=== PATIENT | female | born 1935 | race Caucasian/White ===

== ENCOUNTER 2016-09-30 12:27 | Observation (INO) | payer MEDICARE ==
[~2016-09-30] VITALS: Ht 157.5 cm; Wt 54.5 kg
[2016-09-30] MEDS ORDERED: LEXA1TAB PO (12:56)
[2016-09-30] MEDS ORDERED: LORA1TAB12 PO (12:56)
[2016-09-30] MEDS ORDERED: METO1TAB7 PO (12:56)
[2016-09-30] MEDS ORDERED: CRES10TA32 PO (12:56)
[2016-09-30] MEDS ORDERED: ASPI81TA85 PO (12:56)
--- NOTE | 2016-09-30 14:15 | REP ---
PELVIS AND LEFT HIP: AP view of the pelvis and two additional views of the left hip are performed. There is cortical irregularity of the superior margin of the left pubis, which could possibly represent a subtle nondisplaced fracture. I see no other evidence of acute fracture or dislocation of the visualized osseous structures. There are mild degenerative change at the hip joints bilaterally. There are degenerative changes of the lower lumbar spine. IMPRESSION: Possible subtle nondisplaced fracture, left pubis. Signed by William Newsome MD 10/01/2016 05:02 P
[2016-09-30] MEDS ORDERED: oxyCODONE 5MG TAB PO PRN (14:45)
[2016-09-30] MEDS ORDERED: ACETAMINOPHEN 500 MG TAB PO PRN (14:45)
[2016-09-30] MEDS ORDERED: BISACODYL 10 MG SUPP PR PRN (14:45)
[2016-09-30] MEDS ORDERED: ONDANSETRON 4MG/2ML VIAL (J2405) IV PRN (14:45)
[2016-09-30] MEDS ORDERED: MORPHINE 2 MG/ML 1ML SYRINGE IV PRN (14:45)
[2016-09-30] MEDS ORDERED: LEXA1TAB2 PO (15:19)
[2016-09-30] MEDS ORDERED: VITA100066 PO (15:19)
[2016-09-30] MEDS ORDERED: VITMTA PO (15:19)
[2016-09-30] MEDS ORDERED: VITAMIN K PO (15:19)
[2016-09-30] MEDS ORDERED: VITA400C7 PO (15:19)
[2016-09-30] MEDS ORDERED: CO Q100C10 PO (15:19)
[2016-09-30] MEDS ORDERED: CALC1TAB40 PO (15:19)
[2016-09-30] MEDS ORDERED: GLUC1CAP10 PO (15:19)
[2016-09-30 18:10] LABS: BASO % 0.5 % (0.0-1.0); EOS # 0.1 K/mm3 (0.0-0.50); LARGE UNSTAINED CELL # 0.2 K/mm3 (0.0-0.4); LARGE UNSTAINED CELL % 3.1 % (0.0-4.0); LYMPH # 2.2 K/mm3 (1.5-4.5); LYMPH % 33.4 % (24.0-44.0); MEAN CORPUSCULAR HEMOGLOBIN 35.1 pg (27.0-33.0); MEAN CORPUSCULAR HGB CONC 34.3 g/dl (32.0-36.5); MEAN CORPUSCULAR VOLUME 102.5 fl (80.0-96.0); MONO # 0.4 K/mm3 (0.0-0.8); MONO % 6.6 % (0.0-5.0); NEUTROPHILS # 3.3 K/mm3 (1.8-7.7); NEUTROPHILS % 54.3 % (36.0-66.0); PLATELET COUNT, AUTOMATED 160 k/mm3 (150-450); RED CELL DISTRIBUTION WIDTH 12.5 % (11.5-14.5); WHITE BLOOD COUNT 6.1 K/mm3 (4.0-10.0)
[2016-09-30 18:29] LABS: ANION GAP 9 MEQ/L (8-16); BLOOD UREA NITROGEN 12 MG/DL (7-18); CALCIUM LEVEL 9.5 MG/DL (8.8-10.2); CARBON DIOXIDE LEVEL 25 MEQ/L (21-32); CHLORIDE LEVEL 106 MEQ/L (98-107); CREATININE FOR GFR 0.83 MG/DL (0.55-1.02); GLOMERULAR FILTRATION RATE > 60.0 (>39); GLUCOSE, FASTING 93 MG/DL (83-110); POTASSIUM SERUM 4.1 MEQ/L (3.5-5.1); SODIUM LEVEL 140 MEQ/L (136-145)
--- NOTE | 2016-09-30 20:28 | HPE ---
DATE OF ADMISSION: 09/30/2016 PRIMARY CARE PROVIDER: in [place] CHIEF COMPLAINT: Loss of balance and fall with injury to the left side of the hip on 09/28/2016. PAST MEDICAL HISTORY: 1. Hypertension. 2. Hyperlipidemia. 3. Possible history of coronary artery disease. 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 She felt pain in the left hip and going towards the groin. She was helped up by her to the bed. She remained at home the next day in bed and she was having lots of difficulty getting out of bed and weightbearing on the left side, so she has been lying in bed. However, today she is still unable to get out and walk, so she was brought to the hospital. In the emergency department (ED), the patient was evaluated and had an x-ray of the hip and pelvis done which showed possible nondisplaced fracture of left pubis. However, the patient and her are elderly and she was in a lot of pain and unable to bear weight and ambulate so she was admitted to the hospitalist service for pain control and physical therapy. Dr. Crespo was consulted from the emergency room and he has kindly agreed to see the patient. HOME MEDICATIONS: - aspirin 81 mg daily - calcium, magnesium, zinc one tablet daily - cholecalciferol 1000 units daily - coenzyme Q10 100 mg daily - Lexapro 10 mg daily - glucosamine one capsule by mouth daily - lorazepam 1 mg at bedtime - metoprolol succinate 50 mg at bedtime - multivitamins one tablet by mouth daily - Crestor 10 mg at bedtime - vitamin E 4000 units by mouth daily - vitamin K2-7 one tablet by mouth daily ALLERGIES: No known allergies. SOCIAL HISTORY: Patient does not smoke, does not abuse alcohol or recreational drugs. FAMILY HISTORY: Nothing significant. REVIEW OF SYSTEMS: Patient denies any fever or chills, denies any chest pain or shortness of breath, denies any abdominal pain, nausea, vomiting, or diarrhea. Just complains of left hip pain and left groin pain when she moves or bears weight on the left. PHYSICAL EXAMINATION: VITAL SIGNS: Temperature 98.1, pulse 68, respiratory rate 18, blood pressure 134/70, pulse oximetry 97% in room air. GENERAL: Patient awake, alert, oriented times three, lying down in bed, in no acute distress. HEENT: Normocephalic, atraumatic. Moist mucous membranes. Anicteric eyes. CHEST: Clear to auscultation. CARDIOVASCULAR: S1, S2, regular. No rub, murmur, or gallop. ABDOMEN: Soft, nontender. Bowel sounds present. EXTREMITIES: No edema. LABORATORY DATA: Will order. None available at this point. ASSESSMENT: This is a 81-year-old female admitted for symphysis pubis fracture for pain control and physical therapy. PLAN: 1. For symphysis pubis fracture, will give Tylenol and oxycodone as required for pain control. Physical therapy. Dr. Crespo to see from orthopedics. CT of the hip and pelvis to clarify the fracture more clearly. 2. Hypertension. Will continue with metoprolol. 3. Hyperlipidemia. Will continue with Crestor. 4. Possible history of coronary artery disease. Will continue with aspirin, beta callie, and statin. 5. Deep venous thrombosis (DVT) prophylaxis. Will order.
--- NOTE | 2016-09-30 20:42 | REP ---
CT PELVIS WITHOUT CONTRAST: 09/30/2016. Clinical history: Contour irregularity on radiographs of the left symphysis pubis superiorly, evaluate for nondisplaced fracture. Comparison: Pelvis and bilateral hips today. Findings: Noncontrast images with coronal and sagittal reconstructions provided through the pelvis. There is omental fat in an umbilical hernia not distending the omentum at about 15 mm diameter. The distal left colon, sigmoid and rectum were unremarkable. Right colon is intact. An apparent normal appendix is seen. Small bowel loops in the lower abdomen and pelvis were grossly intact. Uterus is anteverted, not enlarged. Bladder is adequately filled. No stone, mass or wall thickening. There are vascular calcifications from the aorta through the iliac vessels to the femoral triad in the groin. There is no free air within the pelvis on lung window review. There is no ventral or inguinal hernia visible on this study. Intrinsic and extrinsic hip and pelvic muscles as well as the buttocks symmetric and grossly normal. The bone windows show a nondisplaced fracture of the superior pubic ramus at the symphysis pubis. There is a cortical defect anteriorly on axial images. Contour defect also seen on the coronal reconstructions. There is a sclerotic focus in the right symphysis pubis at the articular margin. I do not see other fractures of the pubic rami, however, there is a nondisplaced fracture of anterior column of the acetabulum on that left side and it is seen on coronal image 35 and axial image 53 through 56. Posterior column intact. I do not see a definite fracture of either hip, the right acetabulum or pubic rami and the iliac bones. Sacral ala and foramina intact. Facet arthropathy, degenerative disc change lower lumbar spine. Impression: 1. Nondisplaced fracture of the left anterior wall of the medial aspect superior pubic ramus at the symphysis pubis and another nondisplaced fracture anterior column of the left acetabulum at the junction with the superior pubic ramus. There are no other fractures. Signed by Titi Martinez MD 10/01/2016 11:15 A
[2016-09-30] MEDS: SENOKOT S TAB PO SCH (20:55)
[2016-09-30] MEDS: MULTIVITAMINS/MINERALS THERAP 1 TAB PO SCH (20:55)
[2016-09-30 20:56] VITALS: BP 133/62
[2016-09-30] MEDS ORDERED: ROSUVASTATIN 10 MG TAB (CRESTOR) PO SCH (21:00)
[2016-09-30] MEDS ORDERED: LORazepam 1 MG TAB PO SCH (21:00)
[2016-09-30] MEDS ORDERED: METOPROLOL SUCC (TopROL XL) 50MG **XL** TAB PO SCH (21:00)
[2016-09-30] MEDS ORDERED: ENOXAPARIN 30 MG/0.3 ML SYR (J1650) SC SCH (21:00)
[2016-09-30 22:00] VITALS: BP 131/66
[2016-10-01 06:00] VITALS: BP 122/67
[2016-10-01 07:12] LABS: BASO % 0.6 % (0.0-1.0); EOS # 0.2 K/mm3 (0.0-0.50); EOS % 4.8 % (0.0-3.0); LARGE UNSTAINED CELL # 0.3 K/mm3 (0.0-0.4); LARGE UNSTAINED CELL % 4.8 % (0.0-4.0); LYMPH # 2.4 K/mm3 (1.5-4.5); LYMPH % 41.1 % (24.0-44.0); MEAN CORPUSCULAR HEMOGLOBIN 34.6 pg (27.0-33.0); MEAN CORPUSCULAR HGB CONC 33.9 g/dl (32.0-36.5); MONO # 0.4 K/mm3 (0.0-0.8); MONO % 8.3 % (0.0-5.0); NEUTROPHILS # 2.1 K/mm3 (1.8-7.7); NEUTROPHILS % 40.5 % (36.0-66.0); PLATELET COUNT, AUTOMATED 167 k/mm3 (150-450); RED CELL DISTRIBUTION WIDTH 12.5 % (11.5-14.5); WHITE BLOOD COUNT 5.2 K/mm3 (4.0-10.0)
[2016-10-01 07:16] LABS: ANION GAP 10 MEQ/L (8-16); BLOOD UREA NITROGEN 13 MG/DL (7-18); CALCIUM LEVEL 9.3 MG/DL (8.8-10.2); CARBON DIOXIDE LEVEL 24 MEQ/L (21-32); CHLORIDE LEVEL 108 MEQ/L (98-107); CREATININE FOR GFR 0.74 MG/DL (0.55-1.02); GLOMERULAR FILTRATION RATE > 60.0 (>39); GLUCOSE, FASTING 88 MG/DL (83-110); SODIUM LEVEL 142 MEQ/L (136-145)
[2016-10-01] MEDS ORDERED: ESCITALOPRAM OXALATE 10 MG TAB (LEXAPRO) PO SCH (09:00)
[2016-10-01] MEDS ORDERED: ASPIRIN 81 MG ENTERIC TAB PO SCH (09:00)
[2016-10-01] MEDS: SENOKOT S TAB PO SCH ×2 (09:00→09:20)
[2016-10-01] MEDS: MULTIVITAMINS/MINERALS THERAP 1 TAB PO SCH (09:20)
--- NOTE | 2016-10-01 18:38 | DS.PDOC ---
Discharge Summary General Date of Admission Sep 30, 2016 at 14:36 Date of Discharge 10/01/16 Specialist/Consultants Involve: Gamal Crespo MD Discharge Summary PROCEDURES PERFORMED DURING STAY: None. ADMITTING DIAGNOSES: 1. .nondisplaced fracture of the left anterior wall of the medial aspect superior pubic ramus at the symphysis pubis 2. .nondisplaced fracture of the left anterior wall of the medial aspect superior pubic ramus at the symphysis pubis DISCHARGE DIAGNOSES: 1. .nondisplaced fracture of the left anterior wall of the medial aspect superior pubic ramus at the symphysis pubis 2. .nondisplaced fracture of the left anterior wall of the medial aspect superior pubic ramus at the symphysis pubis COMPLICATIONS/CHIEF COMPLAINT: Fall,Fx Pubis. HISTORY OF PRESENT ILLNESS: . 81-year-old female who is a resident of [place] with a past medical history significant for hypertension, dyslipidemia, and CAD presents to the ER after she fell on her left side with trauma to her left hip area. The patient barely stated that she was chasing a spider in her [facility] home when she lost her balance and tripped, landing on her left side. She reports that this happened 3 days ago. So is currently the patient states that she was having difficulty getting out of bed and weightbearing on the left side. She denied any prodromal symptoms such as lightheadedness, dizziness, chest pain, shortness of breath, abdominal pain, or any nausea/chronic/diarrhea prior to her fall or thereafter. In the ER an x-ray of the hip and pelvis revealed possible nondisplaced fracture of the left pubis. A follow-up CT scan revealed nondisplaced fracture of the left anterior wall of the medial aspect superior pubic ramus at the symphysis pubis and another nondisplaced fracture anterior column of the left cerebellum at the junction with the superior pubic ramus. The patient was subsequently admitted to the hospitalist service for further evaluation and management. During her hospitalization, an orthopedic consult was placed. The patient was also managed with pain control. The patient was seen by physical therapy and cleared to be discharged home. In addition, the patient was seen by orthopedic surgery who recommended no surgical intervention at this time, and to progress with weight bearing activity as tolerated. At this time, the patient is eager to return home and reports no acute complaints of pain. I've advised the patient to follow-up with her primary care physician within 2-4 weeks. She has also been advised to return to the ER if she was expressing any other acute emergencies. DISCHARGE MEDICATIONS: Please see below. ALLERGIES: Please see below. PHYSICAL EXAMINATION ON DISCHARGE: VITAL SIGNS: Please see below. GENERAL: Awake, alert, oriented HEENT: Normocephalic, atraumatic NECK: No JVD CARDIOVASCULAR EXAMINATION: Normal rate, normal S1, S2 RESPIRATORY EXAMINATION: Clear to auscultation bilaterally ABDOMINAL EXAMINATION: Soft, nontender, nondistended EXTREMITIES: 5 out of 5 strength on hip flexion/extension and knee flexion/ extension. Able to ambulate without assistance device at the bedside. LABORATORY DATA: Please see below. IMAGING: PELVIS AND LEFT HIP: AP view of the pelvis and two additional views of the left hip are performed. There is cortical irregularity of the superior margin of the left pubis, which could possibly represent a subtle nondisplaced fracture. I see no other evidence of acute fracture or dislocation of the visualized osseous structures. There are mild degenerative change at the hip joints bilaterally. There are degenerative changes of the lower lumbar spine. IMPRESSION: Possible subtle nondisplaced fracture, left pubis. CT PELVIS WITHOUT CONTRAST: 09/30/2016. Clinical history: Contour irregularity on radiographs of the left symphysis pubis superiorly, evaluate for nondisplaced fracture. Comparison: Pelvis and bilateral hips today. Findings: Noncontrast images with coronal and sagittal reconstructions provided through the pelvis. There is omental fat in an umbilical hernia not distending the omentum at about 15 mm diameter. The distal left colon, sigmoid and rectum were unremarkable. Right colon is intact. An apparent normal appendix is seen. Small bowel loops in the lower abdomen and pelvis were grossly intact. Uterus is anteverted, not enlarged. Bladder is adequately filled. No stone, mass or wall thickening. There are vascular calcifications from the aorta through the iliac vessels to the femoral triad in the groin. There is no free air within the pelvis on lung window review. There is no ventral or inguinal hernia visible on this study. Intrinsic and extrinsic hip and pelvic muscles as well as the buttocks symmetric and grossly normal. The bone windows show a nondisplaced fracture of the superior pubic ramus at the symphysis pubis. There is a cortical defect anteriorly on axial images. Contour defect also seen on the coronal reconstructions. There is a sclerotic focus in the right symphysis pubis at the articular margin. I do not see other fractures of the pubic rami, however, there is a nondisplaced fracture of anterior column of the acetabulum on that left side and it is seen on coronal image 35 and axial image 53 through 56. Posterior column intact. I do not see a definite fracture of either hip, the right acetabulum or pubic rami and the iliac bones. Sacral ala and foramina intact. Facet arthropathy, degenerative disc change lower lumbar spine. Impression: 1. Nondisplaced fracture of the left anterior wall of the medial aspect superior pubic ramus at the symphysis pubis and another nondisplaced fracture anterior column of the left acetabulum at the junction with the superior pubic ramus. There are no other fractures. PROGNOSIS: Medically stable ACTIVITY: As tolerated. DIET: . 2 g low sodium diet DISCHARGE PLAN: DISPOSITION: Home, Self-Care. DISCHARGE INSTRUCTIONS: 1. . Follow-up with primary care physician within 2-4 weeks 2. . Return to the ER for any acute emergencies DISCHARGE CONDITION: Stable. TIME SPENT ON DISCHARGE: Greater than 30 minutes. Vital Signs/I&Os Vital Signs Date Time Temp Pulse Resp B/P (MAP) Pulse Ox O2 Delivery O2 Flow Rate FiO2 10/01/16 06:00 97.7 75 20 122/67 (85) 94 Room Air I&O- Last 24 Hours up to 6 AM 10/01/16 06:00 Intake Total 480 ml Balance 480 ml Laboratory Data Labs 24H Laboratory Tests 2 10/01/16 06:34: White Blood Count 5.2, Red Blood Count 3.82L, Hemoglobin 13.2, Hematocrit 39.0, Mean Corpuscular Volume 102.0H, Mean Corpuscular Hemoglobin 34.6H, Mean Corpuscular Hemoglobin Concent 33.9, Red Cell Distribution Width 12.5, Platelet Count 167, Neutrophils (%) (Auto) 40.5, Lymphocytes (%) (Auto) 41.1, Monocytes ( %) (Auto) 8.3H, Eosinophils (%) (Auto) 4.8H, Basophils (%) (Auto) 0.6, Neutrophils # (Auto) 2.1, Lymphocytes # (Auto) 2.4, Monocytes # (Auto) 0.4, Eosinophils # (Auto) 0.2, Basophils # (Auto) 0.0, Large Unclassified Cells % 4.8H, Large Unclassified Cells # 0.3, Anion Gap 10, Glomerular Filtration Rate > 60.0, Blood Urea Nitrogen 13, Creatinine 0.74, Sodium Level 142, Potassium Level 4.0, Chloride Level 108H, Carbon Dioxide Level 24, Calcium Level 9.3 CBC/BMP Laboratory Tests 10/01/16 06:34 Red Blood Count 3.82 L, Mean Corpuscular Volume 102.0 H, Mean Corpuscular Hemoglobin 34.6 H, Mean Corpuscular Hemoglobin Concent 33.9, Red Cell Distribution Width 12.5, Neutrophils (%) (Auto) 40.5, Lymphocytes (%) (Auto) 41.1, Monocytes (%) (Auto) 8.3 H, Eosinophils (%) (Auto) 4.8 H, Basophils (%) ( Auto) 0.6, Neutrophils # (Auto) 2.1, Lymphocytes # (Auto) 2.4, Monocytes # (Auto ) 0.4, Eosinophils # (Auto) 0.2, Basophils # (Auto) 0.0, Calcium Level 9.3 Discharge Medications Scheduled (Co Q 10) 100 Mg Cap, 100 MG PO DAILY, (Reported) (Calcium & Magnesium + Zin 334-134-5 mg) 1 Tab Tab, 1 TAB PO DAILY, (Reported) Aspirin (Aspir-81) 81 Mg Tab, 81 MG PO DAILY, (Reported) Cholecalciferol (Vitamin D) 1,000 Unit Tab, 1,000 UNIT PO DAILY, (Reported) Escitalopram Oxalate (Lexapro) 20 Mg Tab, 10 MG PO DAILY, (Reported) Glucosamine Chondroitin (Glucosamine Chondroitin) 1 Cap Cap, 1 CAP PO DAILY, ( Reported) Lorazepam (Lorazepam) 1 Mg Tab, 1 MG PO QHS, (Reported) Metoprolol Succinate (Metoprolol Succinate ER) 50 Mg Tab, 50 MG PO QHS, ( Reported) Multivitamins *[facility] STOCKED* (Thera M Plus *[facility] STOCK[facility]*) 1 Tab Tab, 1 TAB PO DAILY, (Reported) Rosuvastatin (Crestor) 10 Mg Tab, 10 MG PO QHS, (Reported) Vitamin E (Vitamin E) 400 Unit Cap, 400 UNIT PO DAILY, (Reported) [Vitamin K2-7] , 1 TAB PO DAILY, (Reported) Allergies Coded Allergies: No Known Allergies (Unverified , 09/30/16) DONNA BATISTA MD Oct 01, 2016 18:38
--- NOTE | 2016-10-01 21:44 | CR ---
DATE OF CONSULTATION: 10/01/2016 CHIEF COMPLAINT: Pain to the left side of the hip. HISTORY OF PRESENT ILLNESS: This is a pleasant 81-year-old female who fell while at home, had significant pain and trouble weightbearing and was admitted for pain management and mobilization through the emergency room (ER) to the hospitalist service. The patient localized pain towards the left hip pelvic region. She had a plain film which reflected a nondisplaced fracture involving the left pubis extending toward the ramus. She also had a CT scan which reflected nondisplaced fracture left anterior wall medial aspect superior pubic ramus and a nondisplaced fracture anterior column left acetabulum at the junction of the superior ramus. [facility] and hospitalist reports are reviewed. CLINICAL EXAMINATION: She is alert, oriented, cooperative. Mood and affect appropriate. She is quite charming. She is not in distress. She voiced decreased pain and increased ability to move. She is eager to leave the hospital. There did not seem to be pain with rotation of the hips. There was no peripheral edema. The extremities warm and well-perfused. Healthy skin face, upper and lower extremities, a cold well-healed wound from when she was a child on the medial thigh attributed to shrapnel from World War II. IMPRESSION: Nondisplaced fracture of the pubic ramus and nondisplaced fracture of the ramus extending towards the anterior column of the acetabulum. RECOMMENDATIONS: Include progressive mobilization, protected weightbearing using a walker. DISCHARGE PLANNING: Followup in the office 1-2 weeks. The patient was comfortable with that plan.
== END 2016-10-01 13:15 | disposition home or self-care (01) ==
LOC: M ED 12:27 → M ED INP 14:36 → M MS5PR 15:40
PROVIDERS: ADMIT Internal Medicine Nephrology; ATTEND Internal Medicine
DX: S32.512A Fracture of superior rim of left pubis, initial encounter for closed fracture (principal); S32.435A Nondisplaced fracture of anterior column [iliopubic] of left acetabulum, initial encounter for closed fracture; W01.0XXA Fall on same level from slipping, tripping and stumbling without subsequent striking against object, initial encounter; Y92.009 Unspecified place in unspecified non-institutional (private) residence as the place of occurrence of the external cause; Y93.89 Activity, other specified; Y99.8 Other external cause status; I10 Essential (primary) hypertension; E78.5 Hyperlipidemia, unspecified; I25.10 Atherosclerotic heart disease of native coronary artery without angina pectoris; Z79.899 Other long term (current) drug therapy; Z79.82 Long term (current) use of aspirin
CPT/HCPCS: 36415; 72192; 73502; 80048; 85025; 96372; 97162; 99284; G0378; G8978; G8979; G8980; J1650